=== PATIENT | female | born 1990 | race Hispanic/Latino ===

== ENCOUNTER 2022-12-14 10:00 | Inpatient (IN) | payer MEDICAID ==
[~2022-12-14] VITALS: Ht 157.5 cm; Wt 80.7 kg
[2022-12-14 16:09] LABS: BASOPHILS # (AUTO) 0.04 K/uL (0.00-0.20); BASOPHILS % (AUTO) 0.4 % (0.0-5.0); EOSINOPHILS # (AUTO) 0.01 K/uL (0.00-0.70); EOSINOPHILS % (AUTO) 0.1 % (0.0-8.0); HEMATOCRIT 35.7 % (36-48); IMMATURE GRANULOCYTE ABSOLUTE 0.09 K/uL (0-1); LYMPHOCYTES # (AUTO) 1.4 K/uL (1.0-4.8); LYMPHOCYTES % (AUTO) 14.9 % (21.0-51.0); MEAN CORPUSCULAR HEMOGLOBIN 31.8 pg (27.0-33.0); MEAN CORPUSCULAR HGB CONC 35.6 g/dL (32.0-36.0); MEAN CORPUSCULAR VOLUME 89.3 fL (79-99); MONOCYTES # (AUTO) 0.6 K/uL (0.1-1.0); MONOCYTES % (AUTO) 6.4 % (3.0-13.0); NEUTROPHILS # (AUTO) 7.3 K/uL (1.8-7.7); NEUTROPHILS % (AUTO) 77.3 % (40.0-77.0); PLATELET COUNT (AUTO) 117 K/uL (130-400); RED CELL DISTRIBUTION WIDTH 13.2 % (11.0-15.5); WHITE BLOOD COUNT (AUTO) 9.5 K/uL (4.8-10.8)
[2022-12-14 17:14] LABS: HIV 1&2 ANTIBODY Non-Reactive (Negative); HIV-1 p24 Antigen Non-Reactive (Negative)
[2022-12-16] MEDS ORDERED: LACTATED RINGERS 1000ML 1,000 ML IV SCH (06:30)
[2022-12-16] MEDS ORDERED: CEFAZOLIN SODIUM 1 GM VIAL IVPB PRN (06:30)
[2022-12-16] MEDS ORDERED: CALDOLOR 800MG+NS 250ML 250 ML IV PRN (06:30)
[2022-12-16 07:20] VITALS: BP 120/80
[2022-12-16] MEDS ORDERED: MORPHINE PF 100MG/10ML AMP IV ONE (09:01)
[2022-12-16] MEDS ORDERED: ONDANSETRON 4MG INJ ONE ×2 (09:01→23:21)
[2022-12-16] MEDS ORDERED: DEXAMETHASONE SOD PHOSPHATE 10MG/ML 1ML VIAL ONE (09:01)
[2022-12-16] MEDS ORDERED: OXYTOCIN 10 USP UNITS/ML ONE (09:46)
[2022-12-16] MEDS ORDERED: EPHEDRINE SULFATE 50 MG/ML AMPULE ONE (09:49)
[2022-12-16] MEDS ORDERED: 0.9%NACL 10ML VIAL IVP PRN (12:00)
[2022-12-16] MEDS ORDERED: MEPERIDINE-PF 75 MG/ML SYG IM PRN (12:00)
[2022-12-16] MEDS ORDERED: PROMETHAZINE HCL 25 MG/ML 1ML AMPULE IM PRN (12:00)
[2022-12-16] MEDS ORDERED: OXYTOCIN-LR 30 UNITS/500ML 500 ML IV PRN (12:00)
[2022-12-16 16:37] VITALS: BP 114/59; PULSE 97; RESP 18
[2022-12-16 16:40] VITALS: BP 114/66; PULSE 61; RESP 18
[2022-12-16] MEDS: DEXTROSE 5 %-0.45 % NACL 1,000 ML IV PRN (16:50)
[2022-12-16] MEDS: CEFAZOLIN SODIUM 2 GM VIAL IVPB SCH (16:50)
[2022-12-16 19:33] VITALS: BP 109/54; PULSE 61; RESP 18
[2022-12-16] MEDS ORDERED: PSEU-221 PO (20:57)
[2022-12-16 23:00] VITALS: BP 104/54; PULSE 65; RESP 18
[2022-12-16] MEDS ORDERED: ACETAMINOPHEN WITH CODEINE 1 TAB TAB PO PRN (23:30)
[2022-12-16] MEDS ORDERED: LANOLIN 30GM OINTMENT TP PRN (23:30)
[2022-12-16] MEDS ORDERED: BISACODYL 10 MG SUPP.RECT RC PRN (23:30)
[2022-12-16] MEDS ORDERED: HYDROCODONE/ACETAMINOPHEN 5/325 MG TAB PO PRN (23:30)
[2022-12-16] MEDS ORDERED: DIPHENHYDRAMINE HCL 25 MG CAPSULE PO PRN (23:30)
[2022-12-16] MEDS ORDERED: ACETAMINOPHEN 500 MG TABLET PO PRN (23:30)
[2022-12-17] VITALS (7 sets, daily range): BP systolic 95–120; BP diastolic 53–68; PULSE 55–68; RESP 18
[2022-12-17] MEDS: CEFAZOLIN SODIUM 2 GM VIAL IVPB SCH ×2 (00:49→09:00)
[2022-12-17] MEDS: DEXTROSE 5 %-0.45 % NACL 1,000 ML IV PRN (00:50)
[2022-12-17] MEDS ORDERED: FLU VACC QS2023-24(6MOS UP)/PF 60 MCG/0.5 ML IM ONE (02:00)
[2022-12-17] MEDS ORDERED: DIPH,PERTUSS(ACELL),TET VAC/PF 0.5 ML VIAL IM ONE (02:00)
[2022-12-17 06:42] LABS: HEMATOCRIT 32.9 % (36-48); MEAN CORPUSCULAR HEMOGLOBIN 31.9 pg (27.0-33.0); MEAN CORPUSCULAR VOLUME 91.1 fL (79-99); RED BLOOD CELL COUNT(AUTO) 3.61 MIL/uL (4.00-5.50); RED CELL DISTRIBUTION WIDTH 13.2 % (11.0-15.5); WHITE BLOOD COUNT (AUTO) 13.4 K/uL (4.8-10.8)
[2022-12-17] MEDS: SIMETHICONE 80 MG TAB.CHEW PO PRN ×4 (08:37→21:27)
[2022-12-17] MEDS: DOCUSATE SODIUM 100 MG CAP PO SCH ×2 (08:37→21:26)
[2022-12-17] MEDS: IBUPROFEN 600 MG TABLET PO PRN ×2 (13:30→18:53)
[2022-12-18 03:30] VITALS: BP 107/60; PULSE 66; RESP 20
[2022-12-18] MEDS: IBUPROFEN 600 MG TABLET PO PRN (06:22)
[2022-12-18 07:13] VITALS: BP 107/66; PULSE 66; RESP 18
[2022-12-18] MEDS: DOCUSATE SODIUM 100 MG CAP PO SCH (08:20)
[2022-12-18 12:39] VITALS: BP 104/59; PULSE 79; RESP 18
[2022-12-18] MEDS ORDERED: IBUP-2070 PO (13:20)
[2022-12-18] MEDS ORDERED: ACET-2079 PO (14:24)
== END 2022-12-18 14:50 | disposition home or self-care (01) | DRG 540 ==
LOC: LDH 12-16 06:19 → WSH 12-16 16:40
PROVIDERS: ADMIT Obstetrics & Gynecology; ATTEND Obstetrics & Gynecology
PROC: 10D00Z1 Extraction of Products of Conception, Low, Open Approach (ICD-10-PCS; principal; 2022-12-16 09:00)
DX: O69.81X0 Labor and delivery complicated by cord around neck, without compression, not applicable or unspecified (principal); O34.211 Maternal care for low transverse scar from previous cesarean delivery; Z3A.39 39 weeks gestation of pregnancy; Z37.0 Single live birth
CPT/HCPCS: 36415; 83033; 85025; 85027; 86701; 86850; 86900; 86901; 87340; 87390; 90715; G0378; J0690; J1100; J2274; J2405; J2550; J2590; J2791; J3490; Q2035; L0625; Q2038